=== PATIENT | male | born 1980 | race Hispanic/Latino ===

== ENCOUNTER → 2022-10-29 | Day surgery (SDC) | payer SELFPAY ==
[~2022-10-29] MED LIST: Lidocaine Jelly 2% Urojet 10 ML ONE
== END | disposition home or self-care (01) ==
LOC: SDC 08:02
PROVIDERS: ATTEND Physician Assistant Medical
DX: F45.8 Other somatoform disorders (principal); M54.2 Cervicalgia
CPT/HCPCS: 91010; J2001